=== PATIENT | male | born 1955 | race Caucasian/White ===

== ENCOUNTER 2018-10-30 17:50 | Emergency (ER) | payer BC ==
[2018-10-30 18:06] LABS: ADD MAN DIFF? NO
[2018-10-30 18:09] LABS: BASOPHIL # 0.1 10^3/ul (0.0-0.1); BASOPHILS % 0.7 % (0.0-2.0); EOSINOPHILS # 0.3 10^3/ul (0.0-0.5); EOSINOPHILS % 3.7 % (0.0-7.0); HEMATOCRIT 25.9 % (42.0-52.0); HEMOGLOBIN 7.8 g/dl (14.0-18.0); LYMPHOCYTES # 2.4 10^3/ul (0.8-2.9); LYMPHOCYTES % 33.6 % (15.0-51.0); MEAN CORPUSCULAR HEMOGLOBIN 28.2 pg (29.0-33.0); MEAN CORPUSCULAR HGB CONC 30.1 g/dl (32.0-37.0); MEAN CORPUSCULAR VOLUME 93.5 fl (82.0-101.0); MEAN PLATELET VOLUME 9.3 fl (7.4-10.4); MONOCYTE # 0.7 10^3/ul (0.3-0.9); MONOCYTES % 9.8 % (0.0-11.0); NEUTROPHIL # 3.7 10^3/ul (1.6-7.5); NEUTROPHILS % 51.9 % (39.0-77.0); PLATELET COUNT 355 10^3/UL (140-415); RED BLOOD COUNT 2.77 10^6/ul (4.70-6.10); RED CELL DISTRIBUTION WIDTH 15.4 % (11.5-14.5)
[2018-10-30 18:09] LABS: WHITE BLOOD COUNT 7.2 10^3/ul (4.8-10.8)
[2018-10-30] MEDS: SODIUM CHLORIDE 0.9% 1L BAG IV* (18:12)
[2018-10-30] MEDS: PIPER-TAZO 3.375 GM IV (PMX) 100 ML IVPB (18:14)
[2018-10-30 18:23] LABS: INR 1.04; PROTIME 13.7 Sec (11.9-14.9); PT RATIO 1.1
[2018-10-30 18:24] LABS: PARTIAL THROMBOPLASTIN TIME 35.3 Sec (23.0-35.0)
[2018-10-30 18:25] LABS: ALBUMIN 3.2 g/dl (3.3-4.9); ALBUMIN/GLOBULIN RATIO 0.74; ALKALINE PHOSPHATASE 101 IU/L (42-121); ANION GAP 13 (5-13); ASPARTATE AMINO TRANSFERASE 13 IU/L (15-46); BLOOD UREA NITROGEN 27 mg/dl (7-20); CALCIUM 9.9 mg/dl (8.4-10.2); CARBON DIOXIDE 21 mmol/L (21-31); CHLORIDE 108 mmol/L (97-110); CREATININE 1.13 mg/dl (0.61-1.24); Estimated GFR > 60 mL/min (>60); GLUCOSE 107 mg/dl (70-220); POTASSIUM 4.4 mmol/L (3.5-5.1); SODIUM 142 mmol/L (135-144); TOTAL PROTEIN 7.5 g/dl (6.1-8.1)
[2018-10-30 18:28] LABS: ALANINE AMINOTRANSFERASE < 6 IU/L (13-69)
[2018-10-30 19:11] LABS: ERYTHROCYTE SEDIMENTATION RATE 130 mm/Hr (0-20)
[2018-10-30] MEDS: CLINDAMYCIN 900 MG/D5W (PMX) 50 ML IVPB (19:29)
[2018-10-30] MEDS: VANCOMYCIN 1 GM (PMX) 250 ML IVPB (20:07)
[2018-10-30] MEDS: HYDROmorphONE 0.5 MG/0.5 ML SYG IV (20:29)
[2018-10-30 22:48] LABS: LACTIC ACID 2.3 mmol/L (0.5-2.0)
== END 2018-10-30 23:55 | disposition short-term general hospital (02) ==
LOC: E/R 23:55
DX: M86.122 Other acute osteomyelitis, left humerus (principal); D64.9 Anemia, unspecified; M25.511 Pain in right shoulder
CPT/HCPCS: 36415; 71045; 73080-LT; 80053; 83605; 85025; 85610; 85651; 85730; 86140; 87040; 93005; 96374; 96375; 99285-25